=== PATIENT | male | born 1950 | race Caucasian/White ===

== ENCOUNTER 2016-07-09 12:20 | Inpatient (IN) | payer MEDICARE ==
[~2016-07-09] VITALS: Ht 177.8 cm; Wt 120.6 kg
[2016-07-09] VITALS (24 sets, daily range): BP systolic 87–129; BP diastolic 49–93; PULSE 114–177; RESP 14–33; TEMP 97.7–103.4; O2SAT 82–99
[~2016-07-09 12:20] MED LIST: ALLO100T PO; AMLO10 PO; ATEN-100 PO; CIAL5TAB PO; CINN500T PO; DORZ1SOL2 OD; FENO160T2 PO; FISH100020 PO; GLUC10TA3 PO; GLUCTAB6 PO; HYDR7.5T76 PO; KCL20 PO; LEVA500T PO; MILK250C2 PO; PRED1%O RIGHT EYE; TAB-TAB PO
[2016-07-09] MEDS ORDERED: SODIUM CHLORIDE 0.9% FLUSH 5 ML FLUSH IVF PRN ×5 (12:30→17:00)
--- NOTE | 2016-07-09 12:32 | PD ---
HPI Chief Complaint: shortness of breath Time Seen by Provider: 12:24 Travel History International Travel<30 days: No Contact w/Intl Traveler<30days: No Traveled to known affect area: No History of Present Illness HPI 66-year-old diabetic male patient presents to the ER brought in by EMS because of shortness of breath that started to get worse over last week. Patient has been short of breath, having dyspnea on exertion, breathing up pink frothy phlegm according to EMS crew today. He had initial saturation of 81% and had to be put on BiPAP, with subsequent saturation of 89% on BiPAP. He currently is barely able to talk. According to patient's conversation with EMS, he has no history of CHF or COPD. On further discussions with the patient's , she states that he has been feeling sick for about 3 days, apparently she also had cold symptoms initially but she had recovered and he has been feeling worse. He has been coughing up phlegm, short of breath, having dyspnea on exertion. He has been feeling chills. She also states that the patient has had history of chronic leg edema and wears MIN stockings and is on a water pill. However, he has not been diagnosed with CHF in the past. Modifying Factors: Dyspnea on exertion Associated Signs & Symptoms: Shortness of breath for the last week Risk Factors: Chronic leg edema on water pill PFSH Past Medical History Arthritis: Yes High Cholesterol: Yes Coronary Artery Disease: Yes Diabetes: Yes GERD: Yes Glaucoma: Yes Gout: Yes Hypertension: Yes Triglycerides - High: Yes Social History Alcohol Use: Yes (STATES 2-3 X'S PER WEEK) Tobacco Use: No Substance Use: No Allergies-Medications (Allergen,Severity, Reaction): Coded Allergies: No Known Allergies (Verified , 02/14/13) Reported Meds & Prescriptions Reported Meds & Active Scripts Active Reported Fish Oil ([place]-3 Fatty Acids) 500 Mg Cap Nifedipine ER 24 HR (Nifedipine) 60 Mg Tab 60 Mg PO DAILY Methotrexate 2.5 Mg Tab 2.5 Mg PO Q7D Metformin (Metformin HCl) 1,000 Mg Tab 1,000 Mg PO BIDPC With meals Lisinopril 40 Mg Tab 40 Mg PO DAILY Klor-Con M20 (Potassium Chloride Microencaps) 20 Meq Tab 20 Meq PO DAILY Hydrochlorothiazide 12.5 Mg Tab 12.5 Mg PO BID Hydrocodone-Acetaminophen 10-325 mg Tab 1 Tab PO Q4H PRN Glipizide 10 Mg Tab 10 Mg PO BIDAC Take 30 minutes before a meal Gemfibrozil 600 Mg Tab 600 Mg PO BIDAC Take 30 minutes prior to breakfast and dinner. Furosemide 20 Mg Tab 20 Mg PO BID Folic Acid 5 Mg Cap 5 Mg PO DAILY Dorzolamide-Timolol Opth Drops 22.3-6.8 Mg/Ml Soln 1 Drop EACH EYE BID Clonidine (Clonidine HCl) 0.1 Mg Tab 0.1 Mg PO BID Cialis (Tadalafil) 5 Mg Tab 5 Mg PO DAILY Do not exceed 1 dose/day. Brimonidine Opth Drops (Brimonidine Tartrate) 0.15% Soln 1 Drop EACH EYE TID Allopurinol 300 Mg Tab 300 Mg PO DAILY Review of Systems Except as stated in HPI: all other systems reviewed are Neg General / Constitutional: Positive: Chills Cardiovascular: Positive: Palpitations, Irregular Rhythm, Tachycardia Respiratory: Positive: Cough, Shortness of Breath Physical Exam Narrative GENERAL: Well-nourished, well-developed elderly white male patient who is currently on BiPAP, in respiratory distress, barely able to talk, unable to give much history. Awake, alert. SKIN: Warm and dry. HEAD: Normocephalic. EYES: No scleral icterus. No injection or drainage. NECK: Supple, trachea midline. CARDIOVASCULAR: Regular rate and rhythm without murmurs, gallops, or rubs. RESPIRATORY: Breath sounds equal with bilateral pulmonary rales. No accessory muscle use. GASTROINTESTINAL: Abdomen soft, non-tender, nondistended. MUSCULOSKELETAL: No cyanosis, or edema. BACK: Nontender without obvious deformity. No CVA tenderness. NEUROLOGICAL: Awake and alert. Cranial nerves II through XII intact. Motor and sensory grossly within normal limits. Five out of 5 muscle strength in all muscle groups. Data Data Last Documented VS Vital Signs Date Time Temp Pulse Resp B/P Pulse Ox O2 Delivery O2 Flow Rate FiO2 07/09/16 14:02 166 30 93 CPAP 07/09/16 13:30 129/62 07/09/16 12:30 100 07/09/16 12:20 97.7 Orders Complete Blood Count With Diff (07/09/16 12:24) Comprehensive Metabolic Panel (07/09/16 12:24) B-Type Natriuretic Peptide (07/09/16 12:24) D-Dimer (07/09/16 12:24) Act Partial Throm Time (Ptt) (07/09/16 12:24) Prothrombin Time / Inr (Pt) (07/09/16 12:24) Magnesium (Mg) (07/09/16 12:24) Ckmb (Isoenzyme) Profile (07/09/16 12:24) Troponin I (07/09/16 12:24) Arterial Blood Gas (Abg) (07/09/16 12:24) Influenzae A/B Antigen (07/09/16 12:24) Iv Access Insert/Monitor (07/09/16 12:24) Electrocardiogram (07/09/16 12:24) Ecg Monitoring (07/09/16 12:24) Oximetry (07/09/16 12:24) Oxygen Administration (07/09/16 12:24) Chest, Single Ap (07/09/16 12:24) Sodium Chloride 0.9% Flush (Ns Flush) (07/09/16 12:30) Resp Bipap / Cpap Non Invas Vt (07/09/16 12:24) Amiodarone Inj (Cordarone Inj) (07/09/16 12:45) Sodium Chloride 0.9% Flush (Ns Flush) (07/09/16 12:45) Furosemide Inj (Lasix Inj) (07/09/16 12:45) Blood Culture (07/09/16 13:06) Lactic Acid Sepsis Protocol (07/09/16 13:06) Ceftriaxone Inj (Rocephin Inj) (07/09/16 13:06) Azithromycin Inj (Zithromax Inj) (07/09/16 13:06) CKMB (07/09/16 12:35) CKMB% (07/09/16 12:35) Ct Thorax/ Chest Wo Iv Contras (07/09/16 14:03) Enoxaparin Inj (Lovenox Inj) (07/09/16 14:15) Admit Order (Ed Use Only) (07/09/16 14:03) Labs Laboratory Tests Test 07/09/16 07/09/16 07/09/16 12:35 12:36 13:25 White Blood Count 9.4 TH/MM3 Red Blood Count 3.97 MIL/MM3 Hemoglobin 13.4 GM/DL Hematocrit 39.2 % Mean Corpuscular Volume 98.8 FL Mean Corpuscular Hemoglobin 33.8 PG Mean Corpuscular Hemoglobin 34.2 % Concent Red Cell Distribution Width 16.4 % Platelet Count 216 TH/MM3 Mean Platelet Volume 8.6 FL Neutrophils (%) (Auto) 95.9 % Lymphocytes (%) (Auto) 2.7 % Monocytes (%) (Auto) 1.4 % Eosinophils (%) (Auto) 0.0 % Basophils (%) (Auto) 0.0 % Neutrophils # (Auto) 9.0 TH/MM3 Lymphocytes # (Auto) 0.3 TH/MM3 Monocytes # (Auto) 0.1 TH/MM3 Eosinophils # (Auto) 0.0 TH/MM3 Basophils # (Auto) 0.0 TH/MM3 CBC Comment AUTO DIFF Differential Total Cells 100 Counted Neutrophils % (Manual) 75 % Band Neutrophils % 19 % Lymphocytes % 5 % Monocytes % 1 % Neutrophils # (Manual) 8.8 TH/MM3 Differential Comment FINAL DIFF MANUAL Platelet Estimate NORMAL Platelet Morphology Comment NORMAL Alexis-Glouster Bodies PRESENT Prothrombin Time 12.2 SEC Prothromb Time International 1.1 RATIO Ratio Activated Partial 35.5 SEC Thromboplast Time D-Dimer Quantitative (PE/DVT) 7.11 MG/L FEU Sodium Level 130 MEQ/L Potassium Level 4.5 MEQ/L Chloride Level 98 MEQ/L Carbon Dioxide Level 16.0 MEQ/L Anion Gap 16 MEQ/L Blood Urea Nitrogen 57 MG/DL Creatinine 3.06 MG/DL Estimat Glomerular Filtration 21 ML/MIN Rate Random Glucose 244 MG/DL Calcium Level 8.9 MG/DL Magnesium Level 1.7 MG/DL Total Bilirubin 1.0 MG/DL Aspartate Amino Transf 43 U/L (AST/SGOT) Alanine Aminotransferase 46 U/L (ALT/SGPT) Alkaline Phosphatase 47 U/L Total Creatine Kinase 352 U/L Creatine Kinase MB 1.6 NG/ML Creatine Kinase MB % 0.5 % Troponin I 0.07 NG/ML B-Type Natriuretic Peptide 109 PG/ML Total Protein 8.3 GM/DL Albumin 3.2 GM/DL Blood Gas Puncture Site LT RADIAL Blood Gas Patient Temperature 98.6 Blood Gas HCO3 16 mmol/L Blood Gas Base Excess -8.8 mmol/L Blood Gas Oxygen Saturation 93 % Arterial Blood pH 7.30 Arterial Blood Partial 34 mmHg Pressure CO2 Arterial Blood Partial 109 mmHG Pressure O2 Arterial Blood Oxygen Content 20.5 Vol % Arterial Blood 2.2 % Carboxyhemoglobin Arterial Blood Methemoglobin 2.1 % Blood Gas Hemoglobin 15.6 G/DL Oxygen Delivery Device NPPV Blood Gas Ventilator Setting IPAP12/[id number] Blood Gas Inspired Oxygen 100 % Lactic Acid Level 3.3 mmol/L MDM Medical Decision Making Medical Screen Exam Complete: Yes Emergency Medical Condition: Yes Medical Record Reviewed: Yes Interpretation(s) Initial EKG shows narrow complex tachycardia at a rate of 170 bpm. Laboratory Tests Test 07/09/16 07/09/16 12:35 12:36 Red Blood Count 3.97 MIL/MM3 (4.50-5.90) Neutrophils (%) (Auto) 95.9 % (16.0-70.0) Lymphocytes (%) (Auto) 2.7 % (9.0-44.0) Neutrophils # (Auto) 9.0 TH/MM3 (1.8-7.7) Lymphocytes # (Auto) 0.3 TH/MM3 (1.0-4.8) Prothrombin Time 12.2 SEC (9.8-11.6) Activated Partial 35.5 SEC Thromboplast Time (24.3-30.1) D-Dimer Quantitative (PE/DVT) 7.11 MG/L FEU (0.00-0.50) Sodium Level 130 MEQ/L (136-145) Carbon Dioxide Level 16.0 MEQ/L (21.0-32.0) Anion Gap 16 MEQ/L (5-15) Blood Urea Nitrogen 57 MG/DL (7-18) Creatinine 3.06 MG/DL (0.60-1.30) Estimat Glomerular Filtration 21 ML/MIN (>89) Rate Random Glucose 244 MG/DL (74-106) Aspartate Amino Transf 43 U/L (15-37) (AST/SGOT) Total Creatine Kinase 352 U/L (39-308) Troponin I 0.07 NG/ML (0.02-0.05) B-Type Natriuretic Peptide 109 PG/ML (0-100) Total Protein 8.3 GM/DL (6.4-8.2) Albumin 3.2 GM/DL (3.4-5.0) Blood Gas HCO3 16 mmol/L (22-26) Blood Gas Base Excess -8.8 mmol/L (-2-2) Arterial Blood pH 7.30 (7.380-7.420) Arterial Blood Partial 34 mmHg (38-42) Pressure CO2 Arterial Blood Oxygen Content 20.5 Vol % (12.0-20.0) Arterial Blood Methemoglobin 2.1 % (0-2) Differential Diagnosis Shortness of breathCHF versus COPD versus pneumonia versus dysrhythmia Narrative Course Chest x-ray shows right lobar infiltrates questionable for underlying pneumonia. Considering patient's history of chronic leg edema, on Lasix, and physical exam with bilateral rails initially, there is concern about possible worsening of CHF. He was given Lasix in the ER. BiPAP was continued in the ER. IV antibiotics were initiated after cultures are drawn secondary to chest x -ray findings. IV fluids were held secondary to unknown CHF history and concern of possible CHF exacerbation. Patient's heart rate was initially in the 180s and due to concern of underlying SVT or ventricular tachycardia as cause of his current symptoms, amiodarone 150 mg was given with slowing heart rate to the 130s. Patient appeared somewhat more comfortable. Lab work ordered for patient shows worsening renal function, elevated d-dimer. BNP is not significantly elevated. At this point, my plan would be to admit the patient to the critical care unit for further treatment and evaluation. Patient will likely need CTA or VQ scan to further evaluate his cause respiratory difficulties. Case was discussed with Dr. Craig of critical care and he access the patient for admission. He states that maybe we should try some Lovenox initially for possible underlying pulmonary embolism. He would recommend CT pulmonary without contrast initially for further evaluation of the right lower lobe infiltrate rather than a full on CTA secondary to patient's elevated creatinine. Aggregate critical care time was 35 minutes. Time to perform other separately billable procedures was not included in the critical care time. My time did not include minutes spent treating any other patients simultaneously or on activities that did not directly contribute to the patient's treatment. The services I provided to this patient were to treat and/or prevent clinically significant deterioration that could result in: Worsening respiratory failure, sepsis, septic shock, I provided critical care services requiring my management, as noted below: Chart data review, documentation time, medication orders and management, vital sign assessments/reviewing monitor data, ordering and reviewing lab tests, ordering and interpreting/reviewing x-rays and diagnostic studies, care of the patient and discussion of the patient with the admitting physicians. Sepsis Criteria SIRS Criteria (2 or more): Heart rate over 90, RR > 20 or PaCO2 < 32 Sepsis Criteria (SIRS+source): Infect source susp/known Severe Sepsis (+one): Lactate >2, Acute Oliguria/Renal Failure Criteria Outcome: Meets severe sepsis criteria Diagnosis Primary Impression: UNSPECIFIED BACTERIAL PNEUMONIA Additional Impression: SHORTNESS OF BREATH Admitting Information Admitting Physician Requests: Admit Noemy Arvizu MD Jul 09, 2016 12:32
[2016-07-09] MEDS ORDERED: FUROSEMIDE 40 MG/4 ML VIAL IV PUSH ONE (12:45)
[2016-07-09] MEDS ORDERED: AMIODARONE INJ 150 MG in DEXTROSE 5% IN WATER 100ML INJ 97 ML IV ONE ×2 (12:45)
--- NOTE | 2016-07-09 12:45 | RADRPT ---
EXAM DATE/TIME: 07/09/2016 12:22 [facility] COMPARISON: CHEST SINGLE AP, February 14, 2013, 14:25. INDICATIONS: Shortness of breath. MEDICAL HISTORY: None. SURGICAL HISTORY: None. ENCOUNTER: Initial ACUITY: 1 day PAIN SCORE: 0/10 LOCATION: Bilateral chest FINDINGS: There is alveolar consolidation of the right mid and lower lung field consistent with possible pneumo irma and/or atelectasis. Patchy opacity is also noted within the left lung base consistent with pneum onia and/or atelectasis. The heart is stable. CONCLUSION: 1. Alveolar consolidation of the right and mid lower lung field and to a lesser extent left lung bas e consistent with atelectasis and/or pneumonia. Clinical correlation is recommended. Campbell Sánchez MD on July 09, 2016 at 12:40 Board Certified Radiologist. This report was verified electronically.
[2016-07-09 12:51] LABS: BLOOD GAS BASE EXCESS -8.8 mmol/L (-2-2); BLOOD GAS CARBOXYHEMOGLOBIN 2.2 % (0-4); BLOOD GAS HCO3 16 mmol/L (22-26); BLOOD GAS METHEMOGLOBIN 2.1 % (0-2); BLOOD GAS O2 HGB SATURATION 93 % (90-100); BLOOD GAS OXYGEN CONTENT 20.5 Vol % (12.0-20.0); BLOOD GAS PCO2 34 mmHg (38-42); BLOOD GAS PO2 109 mmHG (61-120); BLOOD GAS TOTAL HGB 15.6 G/DL (12.0-16.0); TEMP CORR TO 98.6
[2016-07-09 12:52] LABS: CRITICAL VALUE YES; OXYGEN DEVICE NPPV
[2016-07-09 12:53] LABS: DRAW SITE LT RADIAL; FIO2 100 %; NUMBER OF ARTERIAL PUNCTURES 1; STAT YES; ULNAR PULSE PRESENT; VENT SETTINGS IPAP12/EPAP5
[2016-07-09 13:03] LABS: HEMATOCRIT 39.2 % (39.0-51.0); LYMPH % 2.7 % (9.0-44.0); LYMPHOCYTE # 0.3 TH/MM3 (1.0-4.8); MEAN CELL VOLUME 98.8 FL (80.0-100.0); MEAN CORPUSCULAR HEMOGLOBIN 33.8 PG (27.0-34.0); MEAN CORPUSCULAR HGB CONC 34.2 % (32.0-36.0); MONO % 1.4 % (0.0-8.0); NEUT % 95.9 % (16.0-70.0); PLATELET COUNT 216 TH/MM3 (150-450); RED BLOOD COUNT 3.97 MIL/MM3 (4.50-5.90); RED CELL DISTRIBUTION WIDTH 16.4 % (11.6-17.2); WHITE BLOOD COUNT 9.4 TH/MM3 (4.0-11.0)
[2016-07-09 13:06] LABS: HEMO FLAGS AUTO DIFF
[2016-07-09] MEDS ORDERED: AZITHROMYCIN INJ 500 MG in SODIUM CHLOR 0.9% 250 ML INJ 250 ML IV STA (13:06)
[2016-07-09] MEDS ORDERED: cefTRIAXone INJ 2,000 MG in SODIUM CHLORIDE 0.9% INJ 100 ML IV STA (13:06)
[2016-07-09 13:21] LABS: ANION GAP 16 MEQ/L (5-15); APTT (PATIENT) 35.5 SEC (24.3-30.1); AST (GOT) 43 U/L (15-37); BLOOD UREA NITROGEN 57 MG/DL (7-18); CHLORIDE 98 MEQ/L (98-107); GLOMERULAR FILTRATION RATE 21 ML/MIN (>89); INTERNATIONAL NORMALIZED RATIO 1.1 RATIO; MAGNESIUM 1.7 MG/DL (1.5-2.5); POTASSIUM 4.5 MEQ/L (3.5-5.1); PROTHROMBIN TIME - PATIENT 12.2 SEC (9.8-11.6); SODIUM (NA) 130 MEQ/L (136-145)
[2016-07-09 13:30] LABS: ALKALINE PHOSPHATASE 47 U/L (45-117); ALT (GPT) 46 U/L (12-78); CREATINE KINASE 352 U/L (39-308)
[2016-07-09 13:36] LABS: BANDS 19 % (0-6); NEUTROPHIL # MANUAL DIFF 8.8 TH/MM3 (1.8-7.7); POLYS (SEG NEUTROPHILS) 75 % (16-70); SCAN/DIFF FINAL DIFF MANUAL; WBC DIFF SAMPLE 100
[2016-07-09 13:39] LABS: HOWELL-JOLLY BODIES PRESENT (NONE SEEN); PLATELET ESTIMATE SMEAR NORMAL (NORMAL); PLATELET MORPHOLOGY NORMAL (NORMAL)
[2016-07-09 13:43] LABS: CKMB 1.6 NG/ML (0.5-3.6)
[2016-07-09] MEDS ORDERED: FURO20TA PO (13:44)
[2016-07-09] MEDS ORDERED: FOLI5CAP PO (13:44)
[2016-07-09] MEDS ORDERED: FISH500C (13:44)
[2016-07-09] MEDS ORDERED: BRIM0.155 EACH EYE (13:44)
[2016-07-09] MEDS ORDERED: METF1000 PO (13:44)
[2016-07-09] MEDS ORDERED: CHOL1TAB29 (13:44)
[2016-07-09] MEDS ORDERED: GLIP10TA6 PO (13:44)
[2016-07-09] MEDS ORDERED: HYDR-3583 PO (13:44)
[2016-07-09] MEDS ORDERED: CLON0.1T PO (13:44)
[2016-07-09] MEDS ORDERED: LISI40TA PO (13:44)
[2016-07-09] MEDS ORDERED: CIAL5TAB PO (13:44)
[2016-07-09] MEDS ORDERED: NIFE60TA58 PO (13:44)
[2016-07-09] MEDS ORDERED: MULTTAB23 (13:44)
[2016-07-09] MEDS ORDERED: ALLO300T2 PO (13:44)
[2016-07-09] MEDS ORDERED: HYDR12.56 PO (13:44)
[2016-07-09] MEDS ORDERED: POTA-245 PO (13:44)
[2016-07-09] MEDS ORDERED: METH2.5T PO (13:44)
[2016-07-09] MEDS ORDERED: GEMF600T PO (13:44)
[2016-07-09] MEDS ORDERED: DORZ2SOL15 EACH EYE (13:44)
[2016-07-09] MEDS ORDERED: ENOXAPARIN SODIUM 120 MG/0.8 ML SYRINGE SQ ONE (14:15)
[2016-07-09] MEDS ORDERED: SODIUM CHLORID 0.9% 500 ML INJ 500 ML IV ONE (15:00)
--- NOTE | 2016-07-09 15:00 | RADRPT ---
EXAM DATE/TIME: 07/09/2016 14:30 [facility] COMPARISON: CHEST SINGLE AP, July 09, 2016, 12:22. INDICATIONS : Severe shortness of breath. RADIATION DOSE: 18.97 CTDIvol (mGy) MEDICAL HISTORY : Hypertension. Diabetes SURGICAL HISTORY : None. ENCOUNTER: Initial ACUITY: 1 day PAIN SCALE: 0/10 LOCATION: Chest TECHNIQUE: Volumetric scanning of the chest was performed. Using automated exposure control and adjustment of t he mA and/or kV according to patient size, radiation dose was kept as low as reasonably achievable to obtain optimal diagnostic quality images. FINDINGS: Bilateral alveolar consolidations are noted (right worse than the left) consistent with probable pneu monia and/or atelectasis. No pulmonary nodule is noted. No mediastinal, hilar or axillary lymphaden opathy is noted. The heart is enlarged. Coronary artery calcifications are noted. Degenerative rachel nges are noted throughout the thoracic spine. No pleural effusion is noted. The adrenal glands are unremarkable. CONCLUSION: 1. Patchy alveolar consolidations bilaterally (right worse than left) consistent with probable pneumo irma and/or atelectasis. Clinical correlation is recommended. 2. Cardiomegaly and coronary artery calcifications. 3. Degenerative changes and scoliosis of the thoracic spine. Campbell Sánchez MD on July 09, 2016 at 14:49 Board Certified Radiologist. This report was verified electronically.
[2016-07-09] MEDS ORDERED: ETOMIDATE 20 MG/10 ML VIAL IVP ONE (15:15)
[2016-07-09] MEDS ORDERED: SUCCINYLCHOLINE CHLORIDE 200 MG/10 ML VIAL IVP ONE (15:15)
[2016-07-09] MEDS ORDERED: SODIUM CHLOR 0.9% 1000 ML INJ 1,000 ML IV ONE ×3 (15:15→23:45)
[2016-07-09 15:32] LABS: LACTIC ACID GHOST NOT REPORTABLE
[2016-07-09] MEDS ORDERED: PROPOFOL 1000 MG/100 ML INJ 100 ML IV SCH (15:45)
--- NOTE | 2016-07-09 15:56 | RADRPT ---
EXAM DATE/TIME: 07/09/2016 13:40 [facility] COMPARISON: CHEST SINGLE AP, July 09, 2016, 12:22. INDICATIONS : Post endotracheal tube placement. MEDICAL HISTORY: Non-responsive SURGICAL HISTORY : Non-responsive ENCOUNTER: Initial ACUITY: 1 day PAIN SCORE: Non-responsive. LOCATION: Bilateral chest FINDINGS: An endotracheal tube has been placed and has its tip 3 cm above the barbara. Bilateral pulmonary infi ltrates are again noted and unchanged. The heart remains enlarged. CONCLUSION: 1. Endotracheal tube in good position 3 cm above the barbara. 2. No significant change in the bilateral pulmonary infiltrates (right worse than left). 3. Stable cardiomegaly. Campbell Sánchez MD on July 09, 2016 at 15:44 Board Certified Radiologist. This report was verified electronically.
[2016-07-09] MEDS ORDERED: SODIUM CHLOR 0.9% 1000 ML INJ 1,000 ML IV SCH (16:34)
[2016-07-09] MEDS ORDERED: MISCELLANEOUS NURSING INFORMATION XX SCH (16:45)
[2016-07-09] MEDS ORDERED: CHLORHEXIDINE GLUCONATE 2 % 1 PACK (2 CLOTHS) TOP PRN (16:45)
[2016-07-09] MEDS ORDERED: RESP: ALBUTEROL 2.5 MG/IPRATROPIUM 0.5 MG NEB (PRN) INH (16:45)
[2016-07-09] MEDS ORDERED: ACETAMINOPHEN 325 MG TAB PO PRN (16:45)
[2016-07-09] MEDS ORDERED: MIDAZOLAM HCL 2 MG/2 ML VIAL IV ONE (16:45)
[2016-07-09 16:51] LABS: BLOOD GAS BASE EXCESS -7.9 mmol/L (-2-2); BLOOD GAS CARBOXYHEMOGLOBIN 1.7 % (0-4); BLOOD GAS HCO3 18 mmol/L (22-26); BLOOD GAS METHEMOGLOBIN 2.1 % (0-2); BLOOD GAS O2 HGB SATURATION 83 % (90-100); BLOOD GAS OXYGEN CONTENT 18.2 Vol % (12.0-20.0); BLOOD GAS PCO2 39 mmHg (38-42); BLOOD GAS PO2 50 mmHG (61-120); BLOOD GAS TOTAL HGB 15.6 G/DL (12.0-16.0); TEMP CORR TO 98.6
[2016-07-09 16:52] LABS: CRITICAL VALUE YES; DRAW SITE RT RADIAL; FIO2 70 %; NUMBER OF ARTERIAL PUNCTURES 1; OXYGEN DEVICE VENTILATOR; STAT YES; VENT SETTINGS AC 600/20/+8PEEP
[2016-07-09 17:09] LABS: BLOOD, URINE SMALL (NEG); COMMENT (UR) CATH-CULT NOT IND; CULTURE IF INDICATED CATH CULTURE NOT IND; GLUCOSE,URINE NEG (NEG); KETONE, URINE NEG (NEG); NITRITE,URINE NEG (NEG); PH, URINE 5.5 (5.0-8.5); URINE COLOR YELLOW (YELLW/STRAW)
[2016-07-09] MEDS ORDERED: DEXTROSE 50% IN WATER 50 ML VIAL(D50) IV PUSH PRN (17:15)
[2016-07-09] MEDS ORDERED: GLUCAGON 1 MG/ML VIAL OTHER PRN (17:15)
[2016-07-09] MEDS ORDERED: MIDAZOLAM 100 MG/ML INJ 100 ML ONE (17:34)
[2016-07-09] MEDS ORDERED: fentaNYL DRIP 250 ML ONE (17:34)
--- NOTE | 2016-07-09 17:34 | HHI.HP ---
[facility] Service Critical Care Medicine Primary Care Physician Kaiser Subramanian MD Admission Diagnosis shortness of breath/right lower lobe pneumonia/severe sepsis Diagnosis: Chief Complaint: Shortness of breath Travel History International Travel<30 Days: No Contact w/Intl Traveler <30 Da: No Traveled to Known Affected Are: No History of Present Illness 66-year-old diabetic male patient presents to the ER brought in by EMS because of shortness of breath that started to get worse over last week. Patient has been short of breath, having dyspnea on exertion, breathing up pink frothy phlegm according to EMS crew today. He had initial saturation of 81% and had to be put on BiPAP, with subsequent saturation of 89% on BiPAP. He currently is barely able to talk. According to patient's conversation with EMS, he has no history of CHF or COPD. On further discussions with the patient's , she states that he has been feeling sick for about 3 days, apparently she also had cold symptoms initially but she had recovered and he has been feeling worse. He has been coughing up phlegm, short of breath, having dyspnea on exertion. He has been feeling chills. She also states that the patient has had history of chronic leg edema and wears MIN stockings and is on a water pill. However, he has not been diagnosed with CHF in the past. Patient was noted to have right middle lobe/lower lobe consolidation on chest x- ray in the ER as well as abnormal renal function with creatinine around 3 and metabolic acidosis. He was initiated on BiPAP. Chest CT without contrast revealed significant consolidation worse on the right than left lung. Patient decompensated and required emergent intubation by ER physician. Patient was getting 1.5 L of fluid bolus around the time of intubation. When I evaluated the patient was sedated with propofol, orally intubated on mechanical ventilation. History was obtained by reviewing records and discussion with ER physician and nursing staff. PFSH Past Medical History Arthritis: Yes High Cholesterol: Yes Coronary Artery Disease: Yes Diabetes: Yes GERD: Yes Glaucoma: Yes Gout: Yes Hypertension: Yes Triglycerides - High: Yes Social History Alcohol Use: Yes (STATES 2-3 X'S PER WEEK) Tobacco Use: No Substance Use: No Allergies-Medications (Allergen,Severity, Reaction): Coded Allergies: No Known Allergies (Verified , 02/14/13) Reported Meds & Prescriptions Reported Meds & Active Scripts Active Reported Fish Oil (Mission-3 Fatty Acids) 500 Mg Cap Nifedipine ER 24 HR (Nifedipine) 60 Mg Tab 60 Mg PO DAILY Methotrexate 2.5 Mg Tab 2.5 Mg PO Q7D Metformin (Metformin HCl) 1,000 Mg Tab 1,000 Mg PO BIDPC With meals Lisinopril 40 Mg Tab 40 Mg PO DAILY Klor-Con M20 (Potassium Chloride Microencaps) 20 Meq Tab 20 Meq PO DAILY Hydrochlorothiazide 12.5 Mg Tab 12.5 Mg PO BID Hydrocodone-Acetaminophen 10-325 mg Tab 1 Tab PO Q4H PRN Glipizide 10 Mg Tab 10 Mg PO BIDAC Take 30 minutes before a meal Gemfibrozil 600 Mg Tab 600 Mg PO BIDAC Take 30 minutes prior to breakfast and dinner. Furosemide 20 Mg Tab 20 Mg PO BID Folic Acid 5 Mg Cap 5 Mg PO DAILY Dorzolamide-Timolol Opth Drops 22.3-6.8 Mg/Ml Soln 1 Drop EACH EYE BID Clonidine (Clonidine HCl) 0.1 Mg Tab 0.1 Mg PO BID Cialis (Tadalafil) 5 Mg Tab 5 Mg PO DAILY Do not exceed 1 dose/day. Brimonidine Opth Drops (Brimonidine Tartrate) 0.15% Soln 1 Drop EACH EYE TID Allopurinol 300 Mg Tab 300 Mg PO DAILY Review of Systems ROS Limitations: Intubated Physical Exam Vital Signs Vital Signs Date Time Temp Pulse Resp B/P Pulse Ox O2 Delivery O2 Flow Rate FiO2 07/09/16 16:33 121 14 94/51 90 Ventilator 70 07/09/16 16:30 70 07/09/16 16:13 120 14 97/53 90 Ventilator 70 07/09/16 16:00 123 14 90/51 97 Ventilator 100 07/09/16 15:50 124 14 98/57 93 Ventilator 100 07/09/16 15:30 90 100 07/09/16 15:25 138 30 126/93 88 CPAP 07/09/16 15:25 100 07/09/16 15:10 140 30 87 CPAP 07/09/16 14:40 147 30 128/87 90 CPAP 07/09/16 14:02 166 30 123/70 93 CPAP 07/09/16 13:30 145 33 129/62 93 CPAP 07/09/16 12:30 94 100 07/09/16 12:20 97.7 177 30 129/69 82 2/7/17 12:20 100 BiPAP 100 07/09/16 12:20 180 30 82 BiPAP 100 Physical Exam HEENT/ Neuro: Sedated, arousable, orally intubated, no pallor, no icterus, tongue/ mucosa moist Neck: No JVD Chest/Pulm: on mech vent, good air entry bilaterally, no wheezing or crackles. Bilateral rhonchi worse on the right CVS: S1-S2 regular, no murmur GI/abdomen: soft, nontender, bowel sounds sluggish Extremities: warm bilaterally, no edema Laboratory Laboratory Tests Test 07/09/16 07/09/16 07/09/16 07/09/16 12:35 12:36 13:25 16:39 White Blood Count 9.4 Red Blood Count 3.97 Hemoglobin 13.4 Hematocrit 39.2 Mean Corpuscular Volume 98.8 Mean Corpuscular Hemoglobin 33.8 Mean Corpuscular Hemoglobin 34.2 Concent Red Cell Distribution Width 16.4 Platelet Count 216 Mean Platelet Volume 8.6 Neutrophils (%) (Auto) 95.9 Lymphocytes (%) (Auto) 2.7 Monocytes (%) (Auto) 1.4 Eosinophils (%) (Auto) 0.0 Basophils (%) (Auto) 0.0 Neutrophils # (Auto) 9.0 Lymphocytes # (Auto) 0.3 Monocytes # (Auto) 0.1 Eosinophils # (Auto) 0.0 Basophils # (Auto) 0.0 CBC Comment AUTO DIFF Differential Total Cells 100 Counted Neutrophils % (Manual) 75 Band Neutrophils % 19 Lymphocytes % 5 Monocytes % 1 Neutrophils # (Manual) 8.8 Differential Comment FINAL DIFF MANUAL Platelet Estimate NORMAL Platelet Morphology Comment NORMAL [place] Bodies PRESENT Prothrombin Time 12.2 Prothromb Time International 1.1 Ratio Activated Partial 35.5 Thromboplast Time D-Dimer Quantitative (PE/DVT) 7.11 Sodium Level 130 Potassium Level 4.5 Chloride Level 98 Carbon Dioxide Level 16.0 Anion Gap 16 Blood Urea Nitrogen 57 Creatinine 3.06 Estimat Glomerular Filtration 21 Rate Random Glucose 244 Calcium Level 8.9 Magnesium Level 1.7 Total Bilirubin 1.0 Aspartate Amino Transf 43 (AST/SGOT) Alanine Aminotransferase 46 (ALT/SGPT) Alkaline Phosphatase 47 Total Creatine Kinase 352 Creatine Kinase MB 1.6 Creatine Kinase MB % 0.5 Troponin I 0.07 B-Type Natriuretic Peptide 109 Total Protein 8.3 Albumin 3.2 Blood Gas Puncture Site LT RADIAL RT RADIAL Blood Gas Patient Temperature 98.6 98.6 Blood Gas HCO3 16 18 Blood Gas Base Excess -8.8 -7.9 Blood Gas Oxygen Saturation 93 83 Arterial Blood pH 7.30 7.28 Arterial Blood Partial 34 39 Pressure CO2 Arterial Blood Partial 109 50 Pressure O2 Arterial Blood Oxygen Content 20.5 18.2 Arterial Blood 2.2 1.7 Carboxyhemoglobin Arterial Blood Methemoglobin 2.1 2.1 Blood Gas Hemoglobin 15.6 15.6 Oxygen Delivery Device NPPV VENTILATOR Blood Gas Ventilator Setting IPAP12/EPAP5 AC 600/20/+8PEEP Blood Gas Inspired Oxygen 100 70 Lactic Acid Level 3.3 Date/Time Procedure Status Source Growth 07/09/16 14:00 Influenza Types A,B Antigen (MAGNO) - Final Complete Nasal Washing NEGATIVE FOR FLU A AND B ANTIGEN.... 07/09/16 13:25 Aerobic Blood Culture Received Blood Peripheral Pending 07/09/16 13:25 Anaerobic Blood Culture Received Blood Peripheral Pending Result Diagram: 07/09/16 1235 07/09/16 1235 Imaging Last 24 hours Impressions Chest X-Ray 07/09/16 1513 Signed Impressions: Service Date/Time: Saturday, July 09, 2016 13:40 - CONCLUSION: 1. Endotracheal tube in good position 3 cm above the barbara. 2. No significant change in the bilateral pulmonary infiltrates (right worse than left). 3. Stable cardiomegaly. Campbell Sánchez MD Chest CT 07/09/16 1403 Signed Impressions: Service Date/Time: Saturday, July 09, 2016 14:30 - CONCLUSION: 1. Patchy alveolar consolidations bilaterally (right worse than left) consistent with probable pneumonia and/or atelectasis. Clinical correlation is recommended. 2. Cardiomegaly and coronary artery calcifications. 3. Degenerative changes and scoliosis of the thoracic spine. Campbell Sánchez MD Chest X-Ray 07/09/16 1224 Signed Impressions: Service Date/Time: Saturday, July 09, 2016 12:22 - CONCLUSION: 1. Alveolar consolidation of the right and mid lower lung field and to a lesser extent left lung base consistent with atelectasis and/or pneumonia. Clinical correlation is recommended. 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 for sedation/ analgesia in view of borderline blood pressure. Daily sedation vacation. Follow neuro status. Cardiovascular: Aggressive fluid resuscitation, watch for hypotension. Follow- up 2-D echo to assess for RV/LV function. Follow cardiac enzymes. Hold all antihypertensives. Pulmonary: Continue mechanical ventilation, vent bundle, bronchodilators, will increase PEEP from +8 to +10. Given Lovenox 1 mg per KG subcutaneously 1 dose by ER physician to cover for PE though most likely respiratory failure secondary to sepsis/pneumonia. GI/liver: Nothing by mouth for now. We'll start tube feeds tomorrow and advanced to goal as tolerated Renal/: IV hydration, starting bicarbonate drip for metabolic acidosis. Strict intake output, monitor and replete electro lites, follow BUN/creatinine. Nephrology consult requested-Dr. Og for MIKA/CKD ID: Follow-up blood and sputum cultures, UA urine culture if indicated pending. Check urine for strep pneumo and Legionella antigen. Awaiting influenza testing. Empiric antibiotic coverage with IV cefepime/Zithromax/Zyvox. Patient is immunosuppressed secondary to being on methotrexate for his rheumatoid arthritis as well as from uncontrolled diabetes mellitus. Will consult ID for sepsis/pneumonia in immunocompromised host. Endocrine: SSI for glycemic control Heme: Follow CBC Prophylaxis: PPI/SCDs. Patient did receive Lovenox 1 mg per KG subcutaneously 1 dose in the ER. We'll continue heparin 5000 units subcutaneously every 8 hourly starting tomorrow. Discussed with ER physician, discussed with the ER nursing staff, discussed with Dr. Og. Condition critical. Time spent on critical care excluding procedures 70 minutes Marino Craig MD Jul 09, 2016 17:33
[2016-07-09] MEDS: MIDAZOLAM 100 MG/ML INJ 100 ML IV SCH (17:50)
[2016-07-09] MEDS: fentaNYL DRIP 250 ML IV SCH (17:50)
[2016-07-09] MEDS: LINEZOLID 600 MG PREMIX 300 ML IV SCH (17:51)
[2016-07-09] MEDS: PANTOPRAZOLE SODIUM 40 MG VIAL IV SCH (17:51)
[2016-07-09] MEDS: SODIUM BICARBONATE 8.4% INJ 150 MEQ in WATER STERILE FOR INJ 850 ML IV SCH (18:43)
[2016-07-09 19:08] LABS: BETA-HYDROXYBUTYRATE 0.18 MMOL/L (0.00-0.39)
[2016-07-09] MEDS: CEFEPIME INJ 2,000 MG in SODIUM CHLORIDE 0.9% INJ 100 ML IV SCH (20:15)
[2016-07-09] MEDS: ALBUMIN HUMAN 5% 25 GM/500 ML BOTTLE IV SCH ×2 (20:16→23:13)
[2016-07-09 20:30] LABS: LACTIC ACID GHOST NOT REPORTABLE
[2016-07-09] MEDS ORDERED: SODIUM CHLORIDE 0.9% FLUSH 5 ML FLUSH IVF SCH (21:00)
[2016-07-09] MEDS: SODIUM CHLORIDE 0.9% FLUSH 5 ML FLUSH IVF SCH (21:00)
--- NOTE | 2016-07-09 21:38 | MB ---
cc: SHANIQUA RODRÍGUEZ MD DATE OF CONSULTATION 07/09/16 REASON FOR CONSULTATION Elevated BUN and creatinine for evaluation. HISTORY OF PRESENT ILLNESS This is a 66-year-old male known to me from before with past medical history of chronic kidney disease, history of acute kidney injury because of acute interstitial nephritis, has been on hemodialysis in the past, history of hypertension, brought to the hospital because of worsening shortness of breath. I was called to see the patient because of elevated BUN and creatinine. The patient has known history of chronic kidney disease and he has past history of acute kidney injury. He was seen by me when he was admitted in 2012 and that he was following with me in the office and he was lost to followup since 2013. It seems like his creatinine was very high when he was admitted in 2012 and he was started on dialysis, then a kidney biopsy was done at some point in January of 2013 and a kidney biopsy showed that he has chronic interstitial nephritis with glomerulosclerosis. The patient has improvement in the renal function when he got off dialysis and hs creatinine improved to 1.8. This was in January of 2013 when he came with a creatinine of 3.0. The patient then mainly came in here because of gradual worsening of shortness of breath. He was initially on BiPap and then he was intubated for worsening shortness of breath. Most of the history was taken from the patient's chart and his previous record. PAST MEDICAL HISTORY 1. Hyperlipidemia, 2. Diabetes mellitus, 3. Hypertension, 4. Gout, 5. Gastroesophageal reflux disease, 6. Osteoarthritis, 7. Chronic kidney disease, 8. History of acute kidney injury REVIEW OF SYSTEMS Cannot be taken. SOCIAL HISTORY The patient is and there is no history of smoking. Occasionally uses alcoholic beverages. ALLERGIES NO KNOWN DRUG ALLERGIES. MEDICATIONS Currently 1. IV fluid with sodium bicarbonate 150 an hour. 2. Protonix 40 mg IV daily. 3. DuoNeb nebulizer. 4. Linezolid 600 mg IV q. 12-hour 5. Cefepime 2 grams q. 24-hour 6. 500 mg IV daily q 24 hour 7. Albumin 25 grams q. 6-hour. 8. Heparin 5000 units subcu q. 8-hour. 9. Insulin as per sliding scale. 10. Propofol as needed. PHYSICAL EXAMINATION VITAL SIGNS: The patient is intubated. The last blood pressure is 90/54, temperature is 97.7. HEENT: Pupils are mid constricted. Nonicteric sclerae, conjunctivae pale. NECK: Supple. JVD is not elevated. LUNGS: The patient has bilateral decreased air entry with basilar rales and scattered wheezing. HEART: S1, S2 regular rhythm with tachycardia ABDOMEN: Distended, soft, lax. There is no tenderness. EXTREMITIES: There is no edema. LABORATORY DATA WBC count 9.4, hemoglobin 13.4, platelet of 260, neutrophils 95.9%. Sodium 130, potassium 4.0, chloride 98, bicarb 16, BUN 57, creatinine 3.0, calcium 8.9, magnesium 1.7, AST is 43, ALT is 46, alkaline phosphatase 47, ammonia level was not done, creatinine kinase 352, total protein is 8.3. Urinalysis showing protein of 300. Previously has complements normal JACINTO and anti-DNA was negative, ANCA was negative. IMAGING STUDIES The patient had chest x-ray done which shows that he has pulmonary infiltrate, right worse than the left. CT scan of the chest was done without IV contrast and it shows that he has patchy consolidation bilaterally with cardiomegaly and coronary calcification, degenerative changes of the spine. Ultrasound of kidneys was done in 2013 which shows that he has normal size kidneys. In the right kidney, there was a possibility of 3.9 x 2.9 cm solid mass. ASSESSMENT/PLAN 1. Pneumonia 2. Respiratory failure 3. Hypotension 4. Chronic kidney disease with acute kidney injury 5. Metabolic acidosis. 6. Rule-out sepsis 7. Morbid obesity. The patient was intubated and started on broad spectrum antibiotics and getting also IV fluid with sodium bicarbonate. There is no acute urgent indication for dialysis. The hypotension is possibly related to either sepsis as well as pneumonia. Acute worsening in the renal function is most likely because of acute tubular necrosis. The patient has underlying chronic kidney disease with hypertensive and antidiabetic renal disease and there is an element of chronic interstitial nephritis. At present, we will continue the IV fluid and antibiotics. Avoid nephrotoxins. Follow the urine output, the BUN and creatinine. If his condition gets worse then he possibly will need dialysis Thank you for the consultation and I will follow him while he is in the hospital. MD LACEY Nelson/ /9:03 PM /9:15 PM [id number]
[2016-07-09] MEDS: INSULIN ASPART SUPPLEMENTAL SCALE SQ SCH (21:52)
[2016-07-09] MEDS: RESP: ALBUTEROL 2.5 MG/IPRATROPIUM 0.5 MG NEB (SCH) NEB (21:54)
[2016-07-09] MEDS ORDERED: TERBUTALINE INJ 1 MG/ML AMP SQ PRN (23:30)
[2016-07-09] MEDS: EPOPROSTENOL NEB SOLUTION 50 NG/KG/MIN 100 ML NEB SCH ×2 (23:30)
[2016-07-09] MEDS ORDERED: CISATRACURIUM BESYLATE 20 MG/10 ML VIAL IVP ONE (23:45)
[2016-07-10] VITALS (22 sets, daily range): BP systolic 94–141; BP diastolic 48–67; PULSE 66–165; RESP 18–24; TEMP 97.8–101.8; O2SAT 26–90
--- NOTE | 2016-07-10 00:03 | PD.PROCEDR ---
Procedure Note Procedure DATE: [] CENTRAL LINE PLACEMENT: Internal jugular vein. Ultrasound-guided INDICATION: Central venous access CONSENT Informed consent for procedure was obtained in consideration due to hemodynamic instability DESCRIPTION OF THE PROCEDURE The patient was placed in supine position. The skin was cleansed with Chloraprep. Additional barrier precautions included large sterile drape, sterile gloves, sterile gown, face mask, and hat. 1 % lidocaine was used for local anesthesia. Under direct ultrasound guidance and on initial attempt, the vein was accessed with an introducer needle. The guide wire was advanced and the tract was dilated. Using Seldinger technique a 7 [place] 20 cm antimicrobial coated triple-lumen catheter was advanced to a depth of 20 centimeters. The guide wire was removed. All ports had good return of dark venous blood and flushed easily with saline. The central line was secured with 2.0 silk. A sterile dressing with antibiotic disc was applied. ESTIMATED BLOOD LOSS: Minimal COMPLICATIONS: No apparent complications. STAT chest x-ray pending Mode Yuan MD Jul 10, 2016 00:03
--- NOTE | 2016-07-10 00:04 | PD.PROCEDR ---
Procedure Note Procedure DATE: 07/10/2016 Right femoral arterial LINE PLACEMENT: [Right femoral artery. Ultrasound-guided INDICATION: Hemodynamic access DESCRIPTION OF THE PROCEDURE The patient was placed in supine position. The skin was cleansed with Chloraprep. Additional barrier precautions included large sterile drape, sterile gloves, sterile gown, face mask, and hat. 1 % lidocaine was used for local anesthesia. Under direct ultrasound guidance and on initial attempt, the right femoral artery was accessed with an introducer needle. The guide wire was advanced . Using Seldinger technique a 20 [place] 12 cm right femoral artery catheter was advanced to a depth of 12 centimeters. The guide wire was removed. All ports had good return of dark venous blood and flushed easily with saline. The central line was secured with 2.0 silk. A sterile dressing with antibiotic disc was applied. ESTIMATED BLOOD LOSS: Minimal COMPLICATIONS: No apparent complications. Mode Yuan MD Jul 10, 2016 00:04
[2016-07-10] MEDS: CISATRACURIUM INJ 100 MG in SODIUM CHLOR 0.9% 250 ML INJ 240 ML IV SCH ×4 (00:11→21:37)
[2016-07-10] MEDS ORDERED: SODIUM CHLORIDE 0.9% FLUSH 5 ML FLUSH IVF PRN (00:15)
[2016-07-10] MEDS ORDERED: SODIUM BICARBONATE 8.4% INJ 50 MEQ/50 ML SYR IV PUSH ONE (00:30)
--- NOTE | 2016-07-10 00:39 | RADRPT ---
EXAM DATE/TIME: 07/10/2016 00:05 [facility] COMPARISON: CHEST SINGLE AP, July 09, 2016, 13:40. INDICATIONS : Central line placement. MEDICAL HISTORY : None. SURGICAL HISTORY : None. ENCOUNTER: Subsequent ACUITY: 2 days PAIN SCORE: Non-responsive. LOCATION: Bilateral chest FINDINGS: Left jugular line is present in the distal tip is noted to the left of midline overlying the expected location of the left brachiocephalic vein. NG tube courses beneath the diaphragm. Endotracheal tube tip read 0.5 cm above the barbara. There is patchy consolidation bilaterally. Degenerative changes of the spine are seen. CONCLUSION: Left jugular line is noted as above. Dustin Paniagua MD on July 10, 2016 at 0:37 Board Certified Radiologist. This report was verified electronically.
--- NOTE | 2016-07-10 01:03 | PD.PROCEDR ---
Procedure Note Procedure DATE: 07/10/16 PROCEDURE: Fiberoptic bronchoscopy/diagnostic and therapeutic INDICATION: ARDS DETAILS OF PROCEDURE The procedure was considered emergently secondary to significant desaturations. The patient was placed in optimal position and preoxygenated with 100% FiO2. The patient is also on Flolan at 50 ng/kg/m. Patient is currently sedated on a Versed drip at 2 mg an hour, fentanyl drip at 20 g an hour and paralyzed on a a Nimbex drip at 1.5 micrograms per kilogram per minute. Patient [facility] fiberoptic bronchoscope was introduced into 8.0 ET tube. The trachea showed diffuse inflammation with diffuse tracheobronchitis throughout and serosanguineous viscous secretions noted. The mucosa was very friable throughout all lung reynaga. Segmental areas the right upper lobe, right middle lobe and right lower lobe, left upper lobe, left lingula and left lower lobe were patent with no fixed lesions. There is no active bleeding or mucous plugs noted. The bronchoscope was then introduced into the right middle lobe and cc aliquots of sterile saline was lavaged into the right middle lobe with return of slightly frothy and serosanguineous.. Sample sent. Saturations remained from 85-92% throughout the procedure. The bronchoscope was withdrawn without location. Chest x-ray currently pending. Mode Yuan MD Jul 10, 2016 01:03
[2016-07-10 01:04] LABS: BLOOD GAS BASE EXCESS -9.8 mmol/L (-2-2); BLOOD GAS CARBOXYHEMOGLOBIN 1.2 % (0-4); BLOOD GAS HCO3 18 mmol/L (22-26); BLOOD GAS METHEMOGLOBIN 1.2 % (0-2); BLOOD GAS O2 HGB SATURATION 84 % (90-100); BLOOD GAS OXYGEN CONTENT 12.2 Vol % (12.0-20.0); BLOOD GAS PCO2 52 mmHg (38-42); BLOOD GAS PO2 58 mmHg (61-120); BLOOD GAS TOTAL HGB 10.3 G/DL (12.0-16.0); TEMP CORR TO 98.6
[2016-07-10 01:05] LABS: CRITICAL VALUE YES; OXYGEN DEVICE VENTILATOR
[2016-07-10 01:07] LABS: DRAW SITE ART LINE; FIO2 100 %; STAT NO; VENT SETTINGS SEE COMMENTS
[2016-07-10] MEDS: PHENYLEPHRINE INJ 160 MG in DEXTROSE 5% IN WATE 500 ML INJ 484 ML IV SCH ×6 (01:21→17:34)
[2016-07-10] MEDS: HYDROCORTISONE SOD SUCCINATE 100 MG VIAL IV PUSH SCH ×4 (01:26→22:32)
--- NOTE | 2016-07-10 01:29 | RADRPT ---
EXAM DATE/TIME: 07/10/2016 00:57 [facility] COMPARISON: CHEST SINGLE AP, July 10, 2016, 0:05. INDICATIONS : Post bronchoscopy. MEDICAL HISTORY : Hypertension. Diabetes SURGICAL HISTORY : None. ENCOUNTER: Initial ACUITY: 2 days PAIN SCORE: Non-responsive. LOCATION: Bilateral chest FINDINGS: There is bilateral consolidation again seen, not significant change. Endotracheal tube in satisfactor y position. Enteric tube courses beneath the diaphragm. Bilateral effusions are suspected. Left jugul ar line tip overlies the SVC. CONCLUSION: No significant change has occurred. Dustin Paniagua MD on July 10, 2016 at 1:27 Board Certified Radiologist. This report was verified electronically.
[2016-07-10] MEDS ORDERED: EPINEPHrine HCL (1:1000) 1 MG/ML VIAL ONE (01:43)
[2016-07-10] MEDS ORDERED: VASOPRESSIN INJ 20 UNITS/ML VIAL ONE (01:44)
[2016-07-10] MEDS ORDERED: VASOPRESSIN INJ 40 UNITS in DEXTROSE 5% IN WATER 100ML INJ 98 ML IV SCH ×2 (01:45)
[2016-07-10 02:01] LABS: BLOOD GAS BASE EXCESS -6.2 mmol/L (-2-2); BLOOD GAS CARBOXYHEMOGLOBIN 1.2 % (0-4); BLOOD GAS HCO3 20 mmol/L (22-26); BLOOD GAS METHEMOGLOBIN 1.2 % (0-2); BLOOD GAS O2 HGB SATURATION 84 % (90-100); BLOOD GAS OXYGEN CONTENT 13.7 Vol % (12.0-20.0); BLOOD GAS PCO2 48 mmHg (38-42); BLOOD GAS PO2 52 mmHg (61-120); BLOOD GAS TOTAL HGB 11.5 G/DL (12.0-16.0)
[2016-07-10 02:02] LABS: TEMP CORR TO 98.6
[2016-07-10 02:03] LABS: CRITICAL VALUE YES; OXYGEN DEVICE VENTILATOR
[2016-07-10 02:04] LABS: FIO2 100 %
[2016-07-10 02:05] LABS: DRAW SITE ART LINE; STAT YES
[2016-07-10 02:42] LABS: MEAN CELL VOLUME 100.3 FL (80.0-100.0); MEAN CORPUSCULAR HEMOGLOBIN 33.4 PG (27.0-34.0); MEAN CORPUSCULAR HGB CONC 33.3 % (32.0-36.0); PLATELET COUNT 177 TH/MM3 (150-450); RED BLOOD COUNT 3.49 MIL/MM3 (4.50-5.90); RED CELL DISTRIBUTION WIDTH 16.1 % (11.6-17.2); WHITE BLOOD COUNT 1.2 TH/MM3 (4.0-11.0)
[2016-07-10 02:48] LABS: HEMO FLAGS AUTO DIFF
[2016-07-10 02:59] LABS: BICARBONATE 18.3 MEQ/L (21.0-32.0); MAGNESIUM 1.4 MG/DL (1.5-2.5); POTASSIUM 4.4 MEQ/L (3.5-5.1)
[2016-07-10 03:06] LABS: TOTAL BILIRUBIN ADULT 1.2 MG/DL (0.2-1.0)
[2016-07-10 03:08] LABS: APTT (PATIENT) 45.2 SEC (24.3-30.1); INTERNATIONAL NORMALIZED RATIO 1.1 RATIO; PROTHROMBIN TIME - PATIENT 12.7 SEC (9.8-11.6)
[2016-07-10 03:13] LABS: CALCIUM-PROTEIN CORRECTED 7.3 MG/DL (8.5-10.1)
[2016-07-10] MEDS ORDERED: CHLORHEXIDINE GLUCONATE 2 % 1 PACK (2 CLOTHS) TOP SCH (04:00)
[2016-07-10] MEDS: RESP: ALBUTEROL 2.5 MG/IPRATROPIUM 0.5 MG NEB (SCH) NEB ×4 (04:00→20:56)
[2016-07-10] MEDS ORDERED: SODIUM BICARBONATE 8.4% INJ 50 MEQ/50 ML SYR ONE (04:51)
[2016-07-10] MEDS ORDERED: LIDOCAINE 1%/EPINEPHrine 1:100,000 SOLN 30 ML VIAL ONE ×2 (05:04→05:45)
--- NOTE | 2016-07-10 05:08 | HHI.PR ---
Addendum to Inpatient Note Addendum Reason: Additional Documentation Additional Information CODE BLUE: Residents responded to code blue on above patient. Upon arrival to code blue, patient was being managed by patented hogshead assembler. dw MD Sea Courtney Jonathan MD R3 Jul 10, 2016 05:08
[2016-07-10 05:23] LABS: BLOOD GAS BASE EXCESS -16.8 mmol/L (-2-2); BLOOD GAS CARBOXYHEMOGLOBIN 0.8 % (0-4); BLOOD GAS HCO3 12 mmol/L (22-26); BLOOD GAS METHEMOGLOBIN 1.1 % (0-2); BLOOD GAS O2 HGB SATURATION 74 % (90-100); BLOOD GAS OXYGEN CONTENT 11.9 Vol % (12.0-20.0); BLOOD GAS PCO2 48 mmHg (38-42); BLOOD GAS PO2 46 mmHg (61-120); BLOOD GAS TOTAL HGB 11.4 G/DL (12.0-16.0); TEMP CORR TO 98.6
[2016-07-10 05:24] LABS: CRITICAL VALUE YES; DRAW SITE ART LINE; FIO2 100 %; OXYGEN DEVICE VENTILATOR; STAT YES; VENT SETTINGS PC/AC
[2016-07-10] MEDS ORDERED: EPINEPHrine HCL (1:10,000) 1 MG/10 ML SYRINGE IV ONE (06:28)
[2016-07-10] MEDS ORDERED: SODIUM BICARBONATE 8.4% INJ 50 MEQ/50 ML SYR IV ONE (06:28)
[2016-07-10] MEDS ORDERED: DOPamine INJ PREMIX 500 ML IV ONE (06:28)
[2016-07-10] MEDS ORDERED: CALCIUM CHLORIDE 10% SOLN 13.6 MEQ/10 ML SYR IV ONE (06:28)
--- NOTE | 2016-07-10 06:41 | PD.PROCEDR ---
Procedure Note Procedure DATE: 07/10/16 PROCEDURE: Left Thoracostomy tube placement INDICATION: Refractory hypoxia DETAILS OF PROCEDURE The patient was positioned appropriately for chest tube placement. The patient' s left chest was prepped and draped in a sterile fashion. 1% lidocaine with epinephrine was used to anesthetize the surrounding skin. A 2 cm skin incision was made in the midaxillary line at the inframammary crease. Utilizing blunt dissection a subcutaneous tunnel was created cephalad just adjacent to this.. The pleural spaces and apparently in a gush of air was observed. The finger was inserted into the pleural space to check for anatomy and guide tube insertion. A 32 Somali thoracostomy tube was inserted using a Edilma clamp and positioned appropriately. The chest tube was sutured securely to the skin and sterile dressing applied. The Pleur-evac was attached to the chest to the chest x-ray was obtained. Mode Yuan MD Jul 10, 2016 06:41
[2016-07-10 06:42] LABS: LAVAGE TOTAL WBC COUNT 280.8 MILLION (4.7-7.1)
--- NOTE | 2016-07-10 06:42 | PD.PROCEDR ---
Procedure Note Procedure DATE: 07/10/16 PROCEDURE: Right Thoracostomy INDICATION: Refractory hypoxia DETAILS OF PROCEDURE The patient was positioned appropriately for chest tube placement. The patient' s left chest was prepped and draped in a sterile fashion. 1% lidocaine with epinephrine was used to anesthetize the surrounding skin. A 2 cm skin incision was made in the midaxillary line at the inframammary crease. Utilizing blunt dissection a subcutaneous tunnel was created cephalad just adjacent to this.. The pleural spaces and apparently in a gush of blood was observed. The finger was inserted into the pleural space to check for anatomy and guide tube insertion. A 32 Lao thoracostomy tube was inserted using a Edilma clamp and positioned appropriately. The chest tube was sutured securely to the skin and sterile dressing applied. The Pleur-evac was attached to the chest to the chest x-ray was obtained. Mode Yuan MD Jul 10, 2016 06:42
[2016-07-10 06:44] LABS: BRONCHOALVEOLAR LAVAGE RBC 10300 /MM3; BRONCHOALVEOLAR LAVAGE WBC 15600 /MM3
[2016-07-10 06:45] LABS: BRONCHOAVEOLAR HISTIOCYTES 4 %; BRONCHOAVEOLAR LYMPHOCYTES 2 %; BRONCHOAVEOLAR NEUTROPHILS 94 %
[2016-07-10] MEDS: INSULIN ASPART SUPPLEMENTAL SCALE SQ SCH ×4 (07:00→22:32)
--- NOTE | 2016-07-10 07:19 | RADRPT ---
EXAM DATE/TIME: 07/10/2016 06:31 [facility] COMPARISON: CHEST SINGLE AP, July 10, 2016, 0:57. CHEST SINGLE AP, July 10, 2016, 0:05. CT THORAX W/O C ONTRAST, July 09, 2016, 14:30. INDICATIONS : Bilateral chest tube placement. MEDICAL HISTORY : Hypertension. Diabetes. SURGICAL HISTORY : None. ENCOUNTER: Initial ACUITY: 1 day PAIN SCORE: Non-responsive. LOCATION: Bilateral chest FINDINGS: A single view of the chest demonstrates the interval placement of a right-sided chest tube with exten sive subcutaneous air in the right chest wall. Chest tube placed in the mid part of the thoracic cavi ty. There is persistent dense consolidation in the right midlung zone. The mediastinum is shifted fro m right to left. The patient is slightly rotated. Osseous structures are intact. Left-sided chest tu be seen overlying the apex CONCLUSION: Normal development of significant subcutaneous air and despite the patient rotation slight shift of t he mediastinum from right to left. A right-sided chest tube overlies the midlung zone but a noncontra st chest CT may be helpful to evaluate for any residual pleural air or possible underlying tension. Michael Taylor MD on July 10, 2016 at 7:16 Board Certified Radiologist. This report was verified electronically.
[2016-07-10] MEDS: SODIUM BICARBONATE 8.4% INJ 150 MEQ in WATER STERILE FOR INJ 850 ML IV SCH ×4 (07:20→20:49)
--- NOTE | 2016-07-10 07:32 | PD.PROCEDR ---
Procedure Note Procedure CODE BLUE At 453, patient in pulseless electrical activity. Arterial line with no viable tracing. Chest compressions were initiated and she was manually bagged with Ambu bag. Fluids wide open. Patient was on Gomez-Synephrine, vasopressin, epinephrine drips. Patient received 3 A of bicarbonate and 2 ampules of epinephrine 1. ROSC at 457. Mode Yuan MD Jul 10, 2016 07:32
[2016-07-10 07:53] LABS: BANDS 7 % (0-6); POLYS (SEG NEUTROPHILS) 21 % (16-70); WBC DIFF SAMPLE 100
[2016-07-10 07:54] LABS: DOHLE BODIES PRESENT (NONE SEEN); PLATELET ESTIMATE SMEAR NORMAL (NORMAL); PLATELET MORPHOLOGY NORMAL (NORMAL); SCAN/DIFF FINAL DIFF MANUAL
[2016-07-10 07:57] LABS: NEUTROPHIL # MANUAL DIFF 0.3 TH/MM3 (1.8-7.7)
[2016-07-10] MEDS: EPOPROSTENOL NEB SOLUTION 50 NG/KG/MIN 100 ML NEB SCH ×4 (08:14→23:30)
[2016-07-10] MEDS: EPINEPHrine (1:1000) INJ 2 MG in DEXTROSE 5% IN WATER INJ 248 ML IV SCH ×4 (08:14→12:30)
[2016-07-10] MEDS: ALBUMIN HUMAN 5% 25 GM/500 ML BOTTLE IV SCH ×2 (08:16→12:20)
[2016-07-10] MEDS: PANTOPRAZOLE SODIUM 40 MG VIAL IV SCH (08:16)
[2016-07-10] MEDS: LINEZOLID 600 MG PREMIX 300 ML IV SCH ×2 (08:16→17:34)
[2016-07-10] MEDS: SODIUM CHLORIDE 0.9% FLUSH 5 ML FLUSH IVF SCH ×2 (08:17→19:36)
[2016-07-10 08:47] LABS: BLOOD GAS BASE EXCESS -19.5 mmol/L (-2-2); BLOOD GAS CARBOXYHEMOGLOBIN 0.4 % (0-4); BLOOD GAS HCO3 11 mmol/L (22-26); BLOOD GAS METHEMOGLOBIN 0.7 % (0-2); BLOOD GAS O2 HGB SATURATION 60 % (90-100); BLOOD GAS PCO2 64 mmHg (38-42); BLOOD GAS PO2 37 mmHg (61-120); BLOOD GAS TOTAL HGB 11.8 G/DL (12.0-16.0); CRITICAL VALUE YES; OXYGEN DEVICE VENTILATOR; TEMP CORR TO 98.6
[2016-07-10 08:48] LABS: DRAW SITE ALINE; FIO2 100 %
[2016-07-10 08:49] LABS: STAT YES; ULNAR PULSE PRESENT
[2016-07-10] MEDS: HEPARIN SODIUM - SQ 10,000 UNITS/ML VIAL SQ SCH ×2 (09:00→17:36)
[2016-07-10] MEDS ORDERED: SODIUM CHLORIDE 0.9% FLUSH 5 ML FLUSH IVF SCH (09:00)
[2016-07-10 09:05] LABS: HEMATOCRIT 34.9 % (39.0-51.0); MEAN CELL VOLUME 105.3 FL (80.0-100.0); MEAN CORPUSCULAR HEMOGLOBIN 33.3 PG (27.0-34.0); MEAN CORPUSCULAR HGB CONC 31.6 % (32.0-36.0); PLATELET COUNT 149 TH/MM3 (150-450); RED BLOOD COUNT 3.32 MIL/MM3 (4.50-5.90); RED CELL DISTRIBUTION WIDTH 16.7 % (11.6-17.2); WHITE BLOOD COUNT 2.1 TH/MM3 (4.0-11.0)
[2016-07-10 09:21] LABS: MAGNESIUM 1.9 MG/DL (1.5-2.5); POTASSIUM 4.8 MEQ/L (3.5-5.1)
[2016-07-10 09:23] LABS: APTT (PATIENT) 79.7 SEC (24.3-30.1); INTERNATIONAL NORMALIZED RATIO 1.4 RATIO; PROTHROMBIN TIME - PATIENT 15.4 SEC (9.8-11.6)
[2016-07-10 09:42] LABS: HEMO FLAGS AUTO DIFF
[2016-07-10 09:46] LABS: TOTAL BILIRUBIN ADULT 1.4 MG/DL (0.2-1.0)
[2016-07-10 09:50] LABS: BANDS 1 % (0-6); BASOPHILS 1 % (0-2); CORRECTED NUCLEATED RBC 19 /100 WBC (0-0); METAMYELOCYTES 1 % (0-1); NEUTROPHIL # MANUAL DIFF 0.6 TH/MM3 (1.8-7.7); POLYS (SEG NEUTROPHILS) 25 % (16-70); WBC DIFF SAMPLE 100
[2016-07-10 09:51] LABS: PLATELET ESTIMATE SMEAR NORMAL (NORMAL); PLATELET MORPHOLOGY CLUMPED (NORMAL); SCAN/DIFF FINAL DIFF MANUAL
[2016-07-10] MEDS ORDERED: DOPamine INJ PREMIX 500 ML ONE (09:54)
[2016-07-10] MEDS ORDERED: PNEUMOCOCCAL POLYVALENT INJ 25 MCG/0.5 ML SYR IM ONE (10:00)
[2016-07-10] MEDS ORDERED: INFLUENZA VIRUS VACCINE (QUADRIVALENT) 0.5 ML SYR IM ONE (10:00)
[2016-07-10 10:07] LABS: CKMB 25.6 NG/ML (0.5-3.6)
[2016-07-10] MEDS: fentaNYL DRIP 250 ML IV SCH (11:48)
[2016-07-10] MEDS: CHLORHEXIDINE 0.12% (ORAL KIT) 15 ML CUP MT SCH ×2 (12:21→19:36)
--- NOTE | 2016-07-10 13:33 | HHI.CCPN ---
Subjective Remarks/Hospital Course 07/08: 66-year-old diabetic male patient presents to the ER brought in by EMS because of shortness of breath that started to get worse over last week. Patient has been short of breath, having dyspnea on exertion, breathing up pink frothy phlegm according to EMS crew today. He had initial saturation of 81% and had to be put on BiPAP, with subsequent saturation of 89% on BiPAP. He currently is barely able to talk. According to patient's conversation with EMS, he has no history of CHF or COPD. On further discussions with the patient's , she states that he has been feeling sick for about 3 days, apparently she also had cold symptoms initially but she had recovered and he has been feeling worse. He has been coughing up phlegm, short of breath, having dyspnea on exertion. He has been feeling chills. She also states that the patient has had history of chronic leg edema and wears MIN stockings and is on a water pill. However, he has not been diagnosed with CHF in the past. Patient was noted to have right middle lobe/lower lobe consolidation on chest x- ray in the ER as well as abnormal renal function with creatinine around 3 and metabolic acidosis. He was initiated on BiPAP. Chest CT without contrast revealed significant consolidation worse on the right than left lung. Patient decompensated and required emergent intubation by ER physician. Patient was getting 1.5 L of fluid bolus around the time of intubation. When I evaluated the patient was sedated with propofol, orally intubated on mechanical ventilation. History was obtained by reviewing records and discussion with ER physician and nursing staff. 07/10: Patient decompensated overnight requiring increasing amounts of PEEP despite which his oxygen saturations were low he was started on Nimbex for neuromuscular blockade initiated on Flolan as well as wrote a prone for prone ventilation however became extremely hemodynamically unstable during the night. Went into cardiac arrest around 5 AM for which CPR/ ACLS protocol was initiated with return of spontaneous circulation. He had bilateral chest tubes placed for pneumothorax/ pneumomediastinum. He was on high doses of pressors getting more acidotic with worsening lactic acid levels. Dr. Yuan/ Dr. Quinones and myself spoke with patient's who has elected to make the patient DNR status in view of extremely poor prognosis. Patient remains orally intubated on mechanical ventilation on neuromuscular blockade/sedation on epinephrine/ vasopressin/Gomez-Synephrine/dopamine drips. Objective Vital Signs Date Time Temp Pulse Resp B/P Pulse Ox O2 Delivery O2 Flow Rate FiO2 07/10/16 11:28 58 100 07/10/16 06:31 15.00 07/10/16 06:00 165 07/10/16 04:00 101.6 20 141/67 07/09/16 21:53 Auto-Vent Result Diagram: 07/10/16 0845 07/10/16 0845 Other Results Microbiology Date/Time Procedure Status Source Growth 07/09/16 14:00 Influenza Types A,B Antigen (MAGNO) - Final Complete Nasal Washing NEGATIVE FOR FLU A AND B ANTIGEN.... Laboratory Tests Test 07/09/16 07/10/16 07/10/16 07/10/16 16:39 00:05 01:44 05:06 Blood Gas Puncture Site RT RADIAL ART LINE ART LINE ART LINE Blood Gas Patient Temperature 98.6 98.6 98.6 98.6 Blood Gas HCO3 18 mmol/L 18 mmol/L 20 mmol/L 12 mmol/L (22-26) (22-26) (22-26) (22-26) Blood Gas Base Excess -7.9 mmol/L -9.8 mmol/L -6.2 mmol/L -16.8 mmol/L (-2-2) (-2-2) (-2-2) (-2-2) Blood Gas Oxygen Saturation 83 % (90-100) 84 % (90-100) 84 % (90-100) 74 % (90- 100) Arterial Blood pH 7.28 7.16 7.24 7.03 (7.380-7.420) (7.380-7.420) (7.380-7.420) (7.380-7.420) Arterial Blood Partial 39 mmHg (38-42) 52 mmHg (38-42) 48 mmHg (38-42) 48 mmHg ( 38-42) Pressure CO2 Arterial Blood Partial 50 mmHG 58 mmHg 52 mmHg 46 mmHg Pressure O2 (61-120) (61-120) (61-120) (61-120) Arterial Blood Oxygen Content 18.2 Vol % 12.2 Vol % 13.7 Vol % 11.9 Vol % (12.0-20.0) (12.0-20.0) (12.0-20.0) (12.0-20.0) Arterial Blood 1.7 % (0-4) 1.2 % (0-4) 1.2 % (0-4) 0.8 % (0-4) Carboxyhemoglobin Arterial Blood Methemoglobin 2.1 % (0-2) 1.2 % (0-2) 1.2 % (0-2) 1.1 % (0-2) Blood Gas Hemoglobin 15.6 G/DL 10.3 G/DL 11.5 G/DL 11.4 G/DL (12.0-16.0) (12.0-16.0) (12.0-16.0) (12.0-16.0) Oxygen Delivery Device VENTILATOR VENTILATOR VENTILATOR VENTILATOR Blood Gas Ventilator Setting AC SEE COMMENTS SEE COMMENT PC/AC 600/20/+8PEEP Blood Gas Inspired Oxygen 70 % 100 % 100 % 100 % Test 07/10/16 08:32 Blood Gas Puncture Site CORRY Blood Gas Patient Temperature 98.6 Blood Gas HCO3 11 mmol/L (22-26) Blood Gas Base Excess -19.5 mmol/L (-2-2) Blood Gas Oxygen Saturation 60 % (90-100) Arterial Blood pH 6.88 (7.380-7.420) Arterial Blood Partial 64 mmHg (38-42) Pressure CO2 Arterial Blood Partial 37 mmHg Pressure O2 (61-120) Arterial Blood Oxygen Content 10.0 Vol % (12.0-20.0) Arterial Blood 0.4 % (0-4) Carboxyhemoglobin Arterial Blood Methemoglobin 0.7 % (0-2) Blood Gas Hemoglobin 11.8 G/DL (12.0-16.0) Oxygen Delivery Device VENTILATOR Blood Gas Ventilator Setting Blood Gas Inspired Oxygen 100 % Imaging Last 24 hours Impressions Chest X-Ray 07/09/16 1513 Signed Impressions: Service Date/Time: Saturday, July 09, 2016 13:40 - CONCLUSION: 1. Endotracheal tube in good position 3 cm above the barbara. 2. No significant change in the bilateral pulmonary infiltrates (right worse than left). 3. Stable cardiomegaly. Campbell Sánchez MD Chest CT 07/09/16 1403 Signed Impressions: Service Date/Time: Saturday, July 09, 2016 14:30 - CONCLUSION: 1. Patchy alveolar consolidations bilaterally (right worse than left) consistent with probable pneumonia and/or atelectasis. Clinical correlation is recommended. 2. Cardiomegaly and coronary artery calcifications. 3. Degenerative changes and scoliosis of the thoracic spine. Campbell Sánchez MD Chest X-Ray 07/09/16 1224 Signed Impressions: Service Date/Time: Saturday, July 09, 2016 12:22 - CONCLUSION: 1. Alveolar consolidation of the right and mid lower lung field and to a lesser extent left lung base consistent with atelectasis and/or pneumonia. Clinical correlation is recommended. Campbell Sánchez MD Objective Remarks HEENT/ Neuro: Sedated, on neuromuscular blockade, orally intubated, no pallor, no icterus, tongue/ mucosa moist Neck: No JVD Chest/Pulm: on mech vent, good air entry bilaterally, no wheezing or crackles. Bilateral rhonchi. 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 On neuromuscular blockade. Cardiovascular: Continue fluid resuscitation, on epinephrine/Gomez-Synephrine/ vasopressin/dopamine for pressor support. 2-D echo to assess for RV/LV function pending. Hold all antihypertensives. Pulmonary: Continue mechanical ventilation, vent bundle, bronchodilators, on pressure control mechanical ventilation PEEP +18 FiO2 100%. Given Lovenox 1 mg per KG subcutaneously 1 dose by ER physician to cover for PE though most likely respiratory failure secondary to sepsis/pneumonia. GI/liver: Nothing by mouth for now. Renal/: IV hydration, continue bicarbonate drip for metabolic acidosis. Strict intake output, monitor and replete electrolytes, follow BUN/creatinine. Nephrology consult noted-Dr. Og for MIKA/CKD. Patient has negligible urine output since arrival to the ICU. He is too unstable for any renal replacement therapy at this time per my discussion with Dr. Og ID: Follow-up blood and sputum cultures, UA urine culture if indicated pending. Urine for strep pneumo and Legionella antigen pending. Influenza negative. Empiric antibiotic coverage with IV cefepime/Zithromax/Zyvox. Patient is immunosuppressed secondary to being on methotrexate for his rheumatoid arthritis as well as from uncontrolled diabetes mellitus. Endocrine: SSI for glycemic control Heme: Follow CBC Prophylaxis: PPI/SCDs. Patient did receive Lovenox 1 mg per KG subcutaneously 1 dose in the ER. We'll continue heparin 5000 units subcutaneously every 8 hourly starting tomorrow. Discussed with patient's at bedside in detail regarding critical condition including plan of care and she voiced understanding and was agreeable. I also explained that patient is extremely hypotensive on high doses of pressors and is at high risk of going into another cardiac arrest. Patient's does not want any CPR in case of a cardiac arrest however wishes to continue aggressive care to the arrival of her sons who are in transit. I have consulted palliative care to assist with deciding goals of therapy including possible transition to comfort measures in view of extremely poor prognosis. Patient appears to be terminal with multiorgan failure worsening lactic acid levels with inability to maintain satisfactory oxygenation despite maximal ventilatory support. Discussed with Dr. Og. Condition critical. Time spent on critical care excluding procedures 60 minutes Marino Craig MD Jul 10, 2016 13:33
[2016-07-10] MEDS ORDERED: AZITHROMYCIN INJ 500 MG in SODIUM CHLOR 0.9% 250 ML INJ 250 ML IV SCH (15:00)
--- NOTE | 2016-07-10 16:20 | HHI.NPPN ---
Subjective General Problems: Anemia, Edema, Hypotension, Mebatolic Acidosis Renal Failure: Chronic, Acute, Stage III History of Present Illness 66-year-old male known to me from before with past medical history of chronic kidney disease, history of acute kidney injury because of acute interstitial nephritis, has been on hemodialysis in the past, history of hypertension, brought to the hospital because of worsening shortness of breath. I was called to see the patient because of elevated BUN and creatinine. The patient has known history of chronic kidney disease and he has past history of acute kidney injury. He was seen by me when he was admitted in 2012 and that he was following with me in the office and he was lost to followup since 2013. Additional Remarks Patient is on the vent. and sedated, on maximum pressors. Review of Systems General General Remarks Cannot be taken, intubated and sedated. Objective Data Data Vital Signs Date Time Temp Pulse Resp B/P Pulse Ox O2 Delivery O2 Flow Rate FiO2 07/10/16 15:53 87 100 07/10/16 12:00 100 07/10/16 11:28 58 100 07/10/16 08:56 58 100 07/10/16 08:00 100 07/10/16 07:03 80 100 07/10/16 06:31 80 15.00 100 07/10/16 06:00 165 07/10/16 05:00 26 15.00 100 07/10/16 04:49 79 15.00 100 07/10/16 04:00 101.6 117 20 141/67 86 07/10/16 04:00 117 07/10/16 03:20 88 15.00 100 07/10/16 02:18 82 15.00 100 07/10/16 02:00 159 07/10/16 01:12 88 100 07/10/16 00:35 89 100 07/10/16 00:00 153 07/10/16 00:00 100 07/10/16 00:00 101.8 153 18 94/51 84 07/09/16 22:50 103.4 137 20 93/53 87 07/09/16 21:54 83 100 07/09/16 21:53 141 20 99/54 86 Auto-Vent 100 07/09/16 20:30 138 20 89/57 85 Auto-Vent 07/09/16 19:50 91 100 07/09/16 19:45 84 100 07/09/16 19:38 136 20 90/54 93 Auto-Vent 07/09/16 18:39 97 100 07/09/16 17:53 114 20 89/52 99 Ventilator 100 07/09/16 17:30 114 20 90/51 99 Ventilator 100 07/09/16 17:00 116 20 94/52 99 Ventilator 100 07/09/16 16:45 114 14 87/49 99 Ventilator 100 07/09/16 16:33 121 14 94/51 90 Ventilator 70 07/09/16 16:30 70 -: 07/10/16 0845 07/10/16 0845 Microbiology 07/09/16 Gram Stain - Final, Resulted 07/09/16 Sputum Culture - Preliminary, Resulted S. Aureus Mrsa 07/10/16 Acid Fast Stain, Received Pending 07/10/16 Mycobacterial Culture, Received Pending 07/10/16 Fungal Smear - Final, Resulted NO FUNGAL ELEMENTS SEEN. 07/10/16 Fungal Culture, Resulted Pending 07/10/16 Gram Stain - Final, Resulted 07/10/16 Bronchial Culture, Resulted Pending Physical Exam General Appearance Remarks Intubated and sedated. Eyes Eye Exam: Pupils Equal Throat Throat Exam: Oral Mucosa Biehle & Moist Neck Neck Exam: Neck Supple Pulmonary Resp Exam: Crackles, Rhonchi, Decreased Bases, Diminished Breath Sounds, Poor Inspiratory Effort Cardiology CV Exam: Regular, Normal Sinus Rhythm Gastrointestinal/Abdomen GI Exam: Soft, Non-Tender, Bowel Sounds Present, Distended Extremeties Extremities Exam: Moderate Edema, Pitting Edema, Dependent Edema Neurologic Neuro Exam: Sedated Assessment/Plan Assessment Summary: MIKA/Acute Renal Failure, Hypotension Electrolyte Assessment: Metabolic Acidosis Problem List: Plan Assessment: 1. Acute kidney injury with history of chronic kidney disease. 2. Respiratory failure. 3. Hypoxemia/ARDS/ Pneumonia. 4. Sepsis. 5. Shock status. 6. Metabolic acidosis. Plan: Patient has low urine out put. Increase BUN and Creatinine . Has high Lactic acid, on maximum pressors. Now he is hemodynamically unstable for any type of Dialysis. D/W Dr. Craig and also at bed side. He is no Code, prognosis is guarded. Jennifer Og MD Jul 10, 2016 16:19
[2016-07-10] MEDS: DOPamine 800 MG/D5W PREMIX 500 ML IV SCH ×2 (16:30→19:36)
--- NOTE | 2016-07-10 16:45 | HHI.HCPN ---
Arrived on unit nurse reports patient is actively dying and feels my visit may complicate things at this time. is aware patient is dying, has declined drupal architect support. Encouraged nurse to call if palliative care assistance is needed. MARIA TERESA HAQUE Jul 10, 2016 16:45
[2016-07-10] MEDS: WATE IV SCH ×4 (17:34→21:37)
[2016-07-10] MEDS: EPINEPHRINE IV SCH ×4 (17:34→21:37)
[2016-07-10] MEDS: DEXTROSE 5% IV SCH ×4 (17:34→21:37)
[2016-07-10] MEDS: CEFEPIME INJ 2,000 MG in SODIUM CHLORIDE 0.9% INJ 100 ML IV SCH (17:34)
[2016-07-10] MEDS: MIDAZOLAM 100 MG/ML INJ 100 ML IV SCH (22:32)
--- NOTE | 2016-07-10 22:55 | EKG ---
Date Performed: 07/09/2016 Time Performed: 13:02:49 PTAGE: 66 years EKG: SINUS TACHYCARDIA, POSSIBLE ATRIAL FLUTTER POSSIBLE RIGHT VENTRICULAR HYPERTROPHY POSSIBLE ANTERIOR MYOCARDIAL INFARCTION ABNORMAL ECG PREVIOUS TRACING : 07/09/2016 12.36 Compared to prior tracing no significant change DOCTOR: Liam Carver Interpretating Date/Time 07/10/2016 22:55:07
--- NOTE | 2016-07-10 22:58 | EKG ---
Date Performed: 07/09/2016 Time Performed: 12:36:06 PTAGE: 66 years EKG: SUPRAVENTRICULAR TACHYCARDIA POSSIBLE RIGHT VENTRICULAR HYPERTROPHY POSSIBLE ANTERIOR MYOCA RDIAL INFARCTION ABNORMAL ECG PREVIOUS TRACING : 02/14/2013 14.29 Compared to the previous tracing, rate has increased DOCTOR: Liam Carver Interpretating Date/Time 07/10/2016 22:56:48
[2016-07-11] MEDS: DOPamine 800 MG/D5W PREMIX 500 ML IV SCH (00:43)
[2016-07-11 01:14] VITALS: O2SAT 78
--- NOTE | 2016-07-11 02:13 | PD.PROCEDR ---
Procedure Note Procedure Evaluated time of of 0200. Asystole on strips at 0141. Patient's pupils are dilated and fixed. No heart sounds are auscultated. Patient is currently on mechanical ventilation. Carotid, radial and femoral artery pulses were palpated. No pulses felt. Patient does not withdraw to noxious stimuli. Patient is asystole on the monitor with arterial line without pulsatile flow. Mode Yuan MD Jul 11, 2016 02:12
--- NOTE | 2016-09-28 17:15 | HHI.DS ---
Summary Note Date of : Jul 11, 2016 Time Of : 0200 Admission Date Jul 09, 2016 at 14:08 Admitting Diagnosis shortness of breath/right lower lobe pneumonia/severe sepsis Diagnosis at Time of : Brief History 66-year-old diabetic male patient presents to the ER brought in by EMS because of shortness of breath that started to get worse over last week. Patient has been short of breath, having dyspnea on exertion, breathing up pink frothy phlegm according to EMS crew today. He had initial saturation of 81% and had to be put on BiPAP, with subsequent saturation of 89% on BiPAP. He currently is barely able to talk. According to patient's conversation with EMS, he has no history of CHF or COPD. On further discussions with the patient's , she states that he has been feeling sick for about 3 days, apparently she also had cold symptoms initially but she had recovered and he has been feeling worse. He has been coughing up phlegm, short of breath, having dyspnea on exertion. He has been feeling chills. She also states that the patient has had history of chronic leg edema and wears MIN stockings and is on a water pill. However, he has not been diagnosed with CHF in the past. Patient was noted to have right middle lobe/lower lobe consolidation on chest x- ray in the ER as well as abnormal renal function with creatinine around 3 and metabolic acidosis. He was initiated on BiPAP. Chest CT without contrast revealed significant consolidation worse on the right than left lung. Patient decompensated and required emergent intubation by ER physician. Patient was getting 1.5 L of fluid bolus around the time of intubation. When I evaluated the patient was sedated with propofol, orally intubated on mechanical ventilation. History was obtained by reviewing records and discussion with ER physician and nursing staff. [facility] Past Medical History Arthritis: Yes High Cholesterol: Yes Coronary Artery Disease: Yes Diabetes: Yes GERD: Yes Glaucoma: Yes Gout: Yes Hypertension: Yes Triglycerides - High: Yes Social History Alcohol Use: Yes (STATES 2-3 X'S PER WEEK) Tobacco Use: No Substance Use: No Allergies-Medications (Allergen,Severity, Reaction): Coded Allergies: No Known Allergies (Verified , 02/14/13) Reported Meds & Prescriptions Reported Meds & Active Scripts Active Reported Fish Oil (Arabi-3 Fatty Acids) 500 Mg Cap Nifedipine ER 24 HR (Nifedipine) 60 Mg Tab 60 Mg PO DAILY Methotrexate 2.5 Mg Tab 2.5 Mg PO Q7D Metformin (Metformin HCl) 1,000 Mg Tab 1,000 Mg PO BIDPC With meals Lisinopril 40 Mg Tab 40 Mg PO DAILY Klor-Con M20 (Potassium Chloride Microencaps) 20 Meq Tab 20 Meq PO DAILY Hydrochlorothiazide 12.5 Mg Tab 12.5 Mg PO BID Hydrocodone-Acetaminophen 10-325 mg Tab 1 Tab PO Q4H PRN Glipizide 10 Mg Tab 10 Mg PO BIDAC Take 30 minutes before a meal Gemfibrozil 600 Mg Tab 600 Mg PO BIDAC Take 30 minutes prior to breakfast and dinner. Furosemide 20 Mg Tab 20 Mg PO BID Folic Acid 5 Mg Cap 5 Mg PO DAILY Dorzolamide-Timolol Opth Drops 22.3-6.8 Mg/Ml Soln 1 Drop EACH EYE BID Clonidine (Clonidine HCl) 0.1 Mg Tab 0.1 Mg PO BID Cialis (Tadalafil) 5 Mg Tab 5 Mg PO DAILY Do not exceed 1 dose/day. Brimonidine Opth Drops (Brimonidine Tartrate) 0.15% Soln 1 Drop EACH EYE TID Allopurinol 300 Mg Tab 300 Mg PO DAILY Imaging Last 24 hours Impressions Chest X-Ray 07/09/16 1513 Signed Impressions: Service Date/Time: Saturday, July 09, 2016 13:40 - CONCLUSION: 1. Endotracheal tube in good position 3 cm above the barbara. 2. No significant change in the bilateral pulmonary infiltrates (right worse than left). 3. Stable cardiomegaly. Campbell Sánchez MD Chest CT 07/09/16 1403 Signed Impressions: Service Date/Time: Saturday, July 09, 2016 14:30 - CONCLUSION: 1. Patchy alveolar consolidations bilaterally (right worse than left) consistent with probable pneumonia and/or atelectasis. Clinical correlation is recommended. 2. Cardiomegaly and coronary artery calcifications. 3. Degenerative changes and scoliosis of the thoracic spine. Campbell Sánchez MD Chest X-Ray 07/09/16 1224 Signed Impressions: Service Date/Time: Saturday, July 09, 2016 12:22 - CONCLUSION: 1. Alveolar consolidation of the right and mid lower lung field and to a lesser extent left lung base consistent with atelectasis and/or pneumonia. Clinical correlation is recommended. Campbell Sánchez MD Hospital Course 07/08: 66-year-old diabetic male patient presents to the ER brought in by EMS because of shortness of breath that started to get worse over last week. Patient has been short of breath, having dyspnea on exertion, breathing up pink frothy phlegm according to EMS crew today. He had initial saturation of 81% and had to be put on BiPAP, with subsequent saturation of 89% on BiPAP. He currently is barely able to talk. According to patient's conversation with EMS, he has no history of CHF or COPD. On further discussions with the patient's , she states that he has been feeling sick for about 3 days, apparently she also had cold symptoms initially but she had recovered and he has been feeling worse. He has been coughing up phlegm, short of breath, having dyspnea on exertion. He has been feeling chills. She also states that the patient has had history of chronic leg edema and wears MIN stockings and is on a water pill. However, he has not been diagnosed with CHF in the past. Patient was noted to have right middle lobe/lower lobe consolidation on chest x- ray in the ER as well as abnormal renal function with creatinine around 3 and metabolic acidosis. He was initiated on BiPAP. Chest CT without contrast revealed significant consolidation worse on the right than left lung. Patient decompensated and required emergent intubation by ER physician. Patient was getting 1.5 L of fluid bolus around the time of intubation. When I evaluated the patient was sedated with propofol, orally intubated on mechanical ventilation. History was obtained by reviewing records and discussion with ER physician and nursing staff. 07/10: Patient decompensated overnight requiring increasing amounts of PEEP despite which his oxygen saturations were low he was started on Nimbex for neuromuscular blockade initiated on Flolan as well as wrote a prone for prone ventilation however became extremely hemodynamically unstable during the night. Went into cardiac arrest around 5 AM for which CPR/ ACLS protocol was initiated with return of spontaneous circulation. He had bilateral chest tubes placed for pneumothorax/ pneumomediastinum. He was on high doses of pressors getting more acidotic with worsening lactic acid levels. Dr. Yuan/ Dr. Quinones and myself spoke with patient's who has elected to make the patient DNR status in view of extremely poor prognosis. Patient remains orally intubated on mechanical ventilation on neuromuscular blockade/sedation on epinephrine/ vasopressin/Gomez-Synephrine/dopamine drips. 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 On neuromuscular blockade. Cardiovascular: Continue fluid resuscitation, on epinephrine/Gomez-Synephrine/ vasopressin/dopamine for pressor support. 2-D echo to assess for RV/LV function pending. Hold all antihypertensives. Pulmonary: Continue mechanical ventilation, vent bundle, bronchodilators, on pressure control mechanical ventilation PEEP +18 FiO2 100%. Given Lovenox 1 mg per KG subcutaneously 1 dose by ER physician to cover for PE though most likely respiratory failure secondary to sepsis/pneumonia. GI/liver: Nothing by mouth for now. Renal/: IV hydration, continue bicarbonate drip for metabolic acidosis. Strict intake output, monitor and replete electrolytes, follow BUN/creatinine. Nephrology consult noted-Dr. Og for MIKA/CKD. Patient has negligible urine output since arrival to the ICU. He is too unstable for any renal replacement therapy at this time per my discussion with Dr. Og ID: Sent blood and sputum cultures, UA urine culture if indicated . Urine for strep pneumo and Legionella antigen pending. Influenza negative. Empiric antibiotic coverage with IV cefepime/Zithromax/Zyvox. Patient immunosuppressed secondary to being on methotrexate for his rheumatoid arthritis as well as from uncontrolled diabetes mellitus. Sputum grew out MRSA. Endocrine: SSI for glycemic control Heme: Follow CBC Prophylaxis: PPI/SCDs. Patient did receive Lovenox 1 mg per KG subcutaneously 1 dose in the ER. continued heparin 5000 units subcutaneously every 8 hourly. Discussed with patient's at bedside in detail regarding critical condition including plan of care and she voiced understanding and was agreeable. I also explained that patient is extremely hypotensive on high doses of pressors and is at high risk of going into another cardiac arrest. Patient's does not want any CPR in case of a cardiac arrest however wishes to continue aggressive care to the arrival of her sons who are in transit. Consulted palliative care to assist with deciding goals of therapy including possible transition to comfort measures in view of extremely poor prognosis. Patient appears to be terminal with multiorgan failure worsening lactic acid levels with inability to maintain satisfactory oxygenation despite maximal ventilatory support. Discussed with Dr. Og. Patient's elected to make him DNR status considering extremely poor prognosis. Patient subsequently went into asystole on 07/11/2016 and was pronounced at 2 AM and disconnected from ventilator. Marino Craig MD Sep 28, 2016 17:15
== END 2016-07-11 02:00 | disposition expired | DRG 871 ==
LOC: NEPC 12:20 → NEDH 14:08 → HIMN 22:45
PROVIDERS: ADMIT Internal Medicine Critical Care Medicine; ATTEND Internal Medicine Critical Care Medicine
PROC: 5A09357 Assistance with Respiratory Ventilation, Less than 24 Consecutive Hours, Continuous Positive Airway Pressure (ICD-10-PCS; principal; 2016-07-09)
PROC: 5A1945Z Respiratory Ventilation, 24-96 Consecutive Hours (ICD-10-PCS; 2016-07-09)
PROC: 0BH17EZ Insertion of Endotracheal Airway into Trachea, Via Natural or Artificial Opening (ICD-10-PCS; 2016-07-09)
PROC: 04HY32Z Insertion of Monitoring Device into Lower Artery, Percutaneous Approach (ICD-10-PCS; 2016-07-10)
PROC: 5A12012 Performance of Cardiac Output, Single, Manual (ICD-10-PCS; 2016-07-10)
PROC: 05HN33Z Insertion of Infusion Device into Left Internal Jugular Vein, Percutaneous Approach (ICD-10-PCS; 2016-07-10)
PROC: B544ZZA Ultrasonography of Left Jugular Veins, Guidance (ICD-10-PCS; 2016-07-10)
PROC: 0B958ZX Drainage of Right Middle Lobe Bronchus, Via Natural or Artificial Opening Endoscopic, Diagnostic (ICD-10-PCS; 2016-07-10)
PROC: 0W9B30Z Drainage of Left Pleural Cavity with Drainage Device, Percutaneous Approach (ICD-10-PCS; 2016-07-10)
PROC: 0W9930Z Drainage of Right Pleural Cavity with Drainage Device, Percutaneous Approach (ICD-10-PCS; 2016-07-10)
DX: A41.9 Sepsis, unspecified organism (principal); N17.0 Acute kidney failure with tubular necrosis; J96.01 Acute respiratory failure with hypoxia; I46.9 Cardiac arrest, cause unspecified; J18.9 Pneumonia, unspecified organism; E87.2 Acidosis; J98.2 Interstitial emphysema; E66.01 Morbid (severe) obesity due to excess calories; M62.82 Rhabdomyolysis; N10 Acute pyelonephritis; J93.9 Pneumothorax, unspecified; J80 Acute respiratory distress syndrome; I48.91 Unspecified atrial fibrillation; I12.9 Hypertensive chronic kidney disease with stage 1 through stage 4 chronic kidney disease, or unspecified chronic kidney disease; N18.9 Chronic kidney disease, unspecified; E78.5 Hyperlipidemia, unspecified; M10.9 Gout, unspecified; K21.9 Gastro-esophageal reflux disease without esophagitis; M19.90 Unspecified osteoarthritis, unspecified site; Z68.38 Body mass index [BMI] 38.0-38.9, adult; R60.0 Localized edema; I25.10 Atherosclerotic heart disease of native coronary artery without angina pectoris; H40.9 Unspecified glaucoma; Z79.84 Long term (current) use of oral hypoglycemic drugs; E11.65 Type 2 diabetes mellitus with hyperglycemia; M06.9 Rheumatoid arthritis, unspecified; Z79.899 Other long term (current) drug therapy; Z66 Do not resuscitate
CPT/HCPCS: 31500; 32551; 36556; 36600; 71010; 71250; 76937; 80053; 81001; 82010; 82550; 82552; 82805; 82948; 83605; 83735; 83880; 84100; 84484; 85007; 85027; 85379; 85384; 85610; 85730; 86403; 87015; 87040; 87070; 87102; 87116; 87205; 87206; 87449; 87641; 87804; 89051; 93005; 94002; 94003; 94640; 94664; 94799; 96365; 96374; 96375; C9113; J0171; J0282; J0330; J0456; J0692; J0696; J1265; J1325; J1644; J1650; J1720; J1815; J1940; J2020; J2250; J2370; J3010; J7030; J7040; J7050; J7060; P9045